=== PATIENT | male | born 1965 | race Caucasian/White ===

== ENCOUNTER 2018-12-17 09:42 | Emergency (ER) | payer BC ==
[2018-12-17] MEDS ORDERED: Ketorolac INJ* 30 MG/ML 1 ML VIAL IM ONE (10:08)
[2018-12-17] MEDS ORDERED: Cyclobenzaprine TAB* 10 MG PO ONE (10:09)
--- NOTE | 2018-12-17 10:24 | ED ---
Back Pain - HPI Summary HPI Summary: 53 year old male presents to the emergency department for evaluation of low back pain. Pt was lifting a heavy object on Saturday when he started feeling the pain. He states the pain worsens with flexion and twisting movements and is better if he stays still. He tried taking tylenol and an old vycodine prescription from 2005 which helps the pain some. Pt denies any urinary/bowel incontinence, saddle anesthesia, numbness, tingling, and loss of ROM. Pt is unable to bear weight and is using crutches to help him move around. denies any other injury. denies any urinary symptoms. no pain down the legs. pain is located in one spot in lower back. no history of back pain. has history of a fib. - History of Current Complaint Chief Complaint: EDBackInjuryPain Stated Complaint: BACK PAIN PER PT Time Seen by Provider: 12/17/18 09:51 Hx Obtained From: Patient Onset/Duration: Sudden Onset, Still Present Onset/Duration: Started Days Ago, Traumatic Pain Intensity: 8 Aggravating Symptom(s): Movement, Lifting, Bending - Allergies/Home Medications Allergies/Adverse Reactions: Allergies Allergy/AdvReac Type Severity Reaction Status Date / Time shellfish derived Allergy Hives Verified 12/17/18 09:57 Home Medications: Home Medications Magnesium Oxide [Magnesium] 400 mg PO DAILY 12/17/18 [History Confirmed 12/17/18 ] Sotalol TAB* [Betapace 80 MG TAB*] 80 mg PO BID 12/17/18 [History Confirmed ] PMH/Surg Hx/FS Hx/Imm Hx Previously Healthy: Yes Endocrine/Hematology History: Denies: Hx Anticoagulant Therapy, Hx Diabetes, Hx Thyroid Disease Cardiovascular History: Reports: Hx Hypertension, Other Cardiovascular Problems/ Disorders - NEW ONSET AFIB Denies: Hx Pacemaker/ICD Respiratory History: Reports: Hx Sleep Apnea - evaluation for 09/2013 Denies: Hx Asthma, Hx Chronic Obstructive Pulmonary Disease (COPD) History: Denies: Hx Renal Disease Sensory History: Reports: Hx Contacts or Glasses Opthamlomology History: Reports: Hx Contacts or Glasses Neurological History: Denies: Hx Dementia, Hx Seizures Psychiatric History: Reports: Hx Anxiety Denies: Hx Substance Abuse - Surgical History Surgery Procedure, Year, and Place: 1991- wisdom teeth - Immunization History Date of Tetanus Vaccine: PT STATES UNSURE Date of Influenza Vaccine: NONE Infectious Disease History: No Infectious Disease History: Denies: Hx Clostridium Difficile, Hx Hepatitis, Hx Human Immunodeficiency Virus (HIV), Hx Shingles, Hx Tuberculosis, Traveled Outside the [place] in Last 30 Days - Social History Alcohol Use: None Substance Use Type: Reports: None Smoking Status (MU): Never Smoked Tobacco Review of Systems Constitutional: Negative Negative: Fever, Chills, Fatigue Negative: Palpitations, Chest Pain Negative: Shortness Of Breath Negative: Abdominal Pain, Vomiting, Diarrhea, Nausea Genitourinary: Negative Positive: see HPI. Negative: frequency, incontinence Negative: Headache, Weakness, Paresthesia, Numbness, Syncope All Other Systems Reviewed And Are Negative: Yes Physical Exam Triage Information Reviewed: Yes Vital Signs On Initial Exam: Initial Vitals Temp Pulse Resp BP Pulse Ox 98.9 F 68 18 136/93 94 12/17/18 09:43 12/17/18 09:43 12/17/18 09:43 12/17/18 09:43 12/17/18 09:43 Vital Signs Reviewed: Yes Appearance: Positive: Well-Appearing, Well-Nourished Skin: Positive: Warm, Skin Color Reflects Adequate Perfusion, Dry Head/Face: Positive: Normal Head/Face Inspection Eyes: Positive: Normal, EOMI, Conjunctiva Clear ENT: Positive: Hearing grossly normal Neck: Positive: Supple, Nontender Respiratory/Lung Sounds: Positive: Clear to Auscultation, Breath Sounds Present Cardiovascular: Positive: Normal, RRR, Pulses are Symmetrical in both Upper and Lower Extremities Musculoskeletal: Positive: Normal, Strength/ROM Intact - pain with movement, Other - straight leg negative bilaterally Neurological: Positive: Normal, Sensory/Motor Intact - lower extremities, Alert , Oriented to Person Place, Time, Other - babinski negative Psychiatric: Positive: Normal, Affect/Mood Appropriate Diagnostics - Vital Signs Vital Signs Temp Pulse Resp BP Pulse Ox 12/17/18 09:43 98.9 F 68 18 136/93 94 - Laboratory Lab Statement: Any lab studies that have been ordered have been reviewed, and results considered in the medical decision making process. - CT back CT Interpretation Completed By: Radiologist Summary of CT Findings: IMPRESSION: 2. MILD LUMBAR SPONDYLOSIS DESCRIBED, IF THE PATIENT'S SYMPTOMS PERSIST RECOMMEND. FOLLOW-UP MR IMAGING. 2. MILD CHRONIC COMPRESSION FRACTURE OF THE SUPERIOR ENDPLATE OF THE L3 VERTEBRAL BODY. Re-Evaluation - Re-Evaluation First Eval Re-Evaluation Time: 11:34 Change: Improved Comment: able to ambulate around the room, pain improved Back Pain Course/Dx - Course Course Of Treatment: 53-year-old male presents with back pain for the past couple days. States pain is worse when he ambulates but is able to do so but has been using crutches so has a decreased with the pain. pain present only when he moves. No numbness or tingling. No saddle anasethesia or loss of bowel or bladder. Has been using old hydrocodone and Tylenol for the pain. On exam has pain with range of motion of the back. Neurovascularly intact. CT shows spondolysis. gave flexeril and toradol and feeling better. discussed will add steriod and flexeril. told follow up with primary. patient understand and agrees with plan. - Diagnoses Differential Diagnosis/HQI/PQRI: Positive: Fracture, Herniated Disc, Strain Provider Diagnoses: Back pain Discharge - Sign-Out/Discharge Documenting (check all that apply): Patient Departure Patient Received Moderate/Deep Sedation with Procedure: No - Discharge Plan Condition: Good Disposition: HOME Prescriptions: Cyclobenzaprine TAB* [Flexeril 10 MG TAB*] 10 mg PO TID PRN #21 tab PRN Reason: Pain methylPREDNISolone [Medrol Dosepak 4 MG*] 4 mg PO .SEE CAROL INSTRUCTION #1 packet Patient Education Materials: Back Pain (ED) Referrals: Danay Bailon DO [Primary Care Provider] - [facility] [place] Physical therapy,PT [Medical Doctor] - Additional Instructions: Follow directions on package for Medrol pack Take muscle relaxers three times a day Use ibuprofen or Tylenol for pain every 6 hours ice/heat area, move as much as possible Follow up with primary within 5 days follow up with PT Return to ED if develop any new or worsening symptoms - Billing Disposition and Condition Condition: GOOD Disposition: Home - Attestation Statements Provider Attestation: I was available for consult. This patient was seen by the KA[facility]. The patient was not presented to, seen by, or examined by me. -Maximino
[2018-12-17 11:53] VITALS: BP 114/70
== END 2018-12-17 11:52 | disposition home or self-care (01) ==
LOC: ED 09:42
DX: M54.5 Low back pain (principal); I10 Essential (primary) hypertension; I48.91 Unspecified atrial fibrillation
CPT/HCPCS: 72131; 96372; 99282; A9270-GY; J1885

== ENCOUNTER 2019-09-10 22:29 | Emergency (ER) | payer BC ==
--- NOTE | 2019-09-10 22:53 | ED ---
Palpitations / Dysrhythmia - HPI Summary HPI Summary: This pt is a 54 Y/O M presenting to [facility] with a CC of AFIB that started at 2100 this date. He states that he has a Hx of AFIB since 2013. He states that at the last instance of extended AFIB he had to be cardioverted. He states that he has had a total of 4 cardioversions. He denies any fever, headaches, SOB, diaphoresis, CP, and N/V. He states that he has no aggravating or alleviating factors. He has a PMHx of AFIB and HTN. - History of Current Complaint Chief Complaint: EDChestPainROMI Time Seen by Provider: 09/10/19 22:47 Hx Obtained From: Patient Onset/Duration: Sudden Onset, Lasting Hours - 2, Still Present Timing: Constant Severity Initially: Moderate Severity Currently: Moderate Character: Irregular Aggravating: Nothing Alleviating: Nothing Associated Signs & Symptoms: Negative - fever, headaches, SOB, diaphoresis, CP, and N/V - Allergy/Home Medications Allergies/Adverse Reactions: Allergies Allergy/AdvReac Type Severity Reaction Status Date / Time shellfish derived Allergy Hives Verified 12/17/18 09:57 PMH/Surg Hx/FS Hx/Imm Hx Previously Healthy: Yes Endocrine/Hematology History: Denies: Hx Anticoagulant Therapy, Hx Diabetes, Hx Thyroid Disease Cardiovascular History: Reports: Hx Hypertension, Other Cardiovascular Problems/ Disorders - NEW ONSET AFIB Denies: Hx Pacemaker/ICD Respiratory History: Reports: Hx Sleep Apnea - evaluation for 09/2013 Denies: Hx Asthma, Hx Chronic Obstructive Pulmonary Disease (COPD) History: Denies: Hx Renal Disease Sensory History: Reports: Hx Contacts or Glasses Opthamlomology History: Reports: Hx Contacts or Glasses Neurological History: Denies: Hx Dementia, Hx Seizures Psychiatric History: Reports: Hx Anxiety Denies: Hx Substance Abuse - Cancer History Hx Chemotherapy: No Hx Radiation Therapy: No - Surgical History Surgical History: Yes Surgery Procedure, Year, and Place: 1991- wisdom teeth - Immunization History Date of Tetanus Vaccine: PT STATES UNSURE Date of Influenza Vaccine: NONE Immunizations Up to Date: Yes Infectious Disease History: No Infectious Disease History: Denies: Hx Clostridium Difficile, Hx Hepatitis, Hx Human Immunodeficiency Virus (HIV), Hx Shingles, Hx Tuberculosis, Traveled Outside the [place] in Last 30 Days - Family History Known Family History: Positive: Hypertension - Social History Occupation: Employed Full-time Lives: With Family Alcohol Use: None Hx Substance Use: No Substance Use Type: Reports: None Hx Tobacco Use: No Smoking Status (MU): Never Smoked Tobacco Household Exposure: No Review of Systems Negative: Fever, Skin Diaphoresis Positive: Palpitations - states irregular . Negative: Chest Pain Negative: Shortness Of Breath Negative: Vomiting, Nausea Negative: Headache All Other Systems Reviewed And Are Negative: Yes Physical Exam - Summary Physical Exam Summary: Appearance: Well-appearing, Well-nourished, lying in bed comfortably Skin: Warm, dry, no obvious rash Eyes: sclera anicteric, no conjunctival pallor ENT: mucous membranes moist, pharynx appears normal Neck: Supple, nontender Respiratory: Clear to auscultation, no signs of respiratory distress Cardiovascular: irregularly irregular pulse and rhythm Abdomen: Soft, nontender, normal active bowel sounds present Musculoskeletal: Normal, Strength/ROM Intact Neurological: A&Ox3, awake and alert, mentation is normal, speech is fluent and appropriate Psychiatric: affect is normal, does not appear anxious or depressed Triage Information Reviewed: Yes Vital Signs On Initial Exam: Initial Vitals Temp Pulse Resp BP Pulse Ox 98.0 F 119 18 140/100 98 09/10/19 22:31 09/10/19 22:31 09/10/19 22:31 09/10/19 22:31 09/10/19 22:31 Vital Signs Reviewed: Yes Procedures - Sedation Patient Received Moderate/Deep Sedation with Procedure: Yes - 80 mgs propofol with good effect Are You The Provider Who Administered The Sedation: [place] of Provider Whom Sedated Patient: Randy Bergeron - Procedural Sedation/Analgesia Sedation Course: RT Present, Emergency Airway Equipment Available, Informed Consent Obtained, Time Out Completed, End-tidal Capnography Utilized Adverse Reactions Experienced by Patient: None Mallampati Classification: Class I ASA Classification: Class II: Mild Systemic Disease Pre-Procedural Heart: No Murmur Pre-Procedural Lungs: Clear Auscultation Comment/Plan of Care: clear for sedation/cardioversion Cleared for Moderate Sedation: Yes Pre-Procedural Diagnosis: atrial fibrillation Post-Procedural Diagnosis: atrial fibrillation Estimated Blood Loss: None Specimen(s): None Findings: None Implants/Tubes/Drains Placed: None - Additional Procedures Additional Procedures: cardioversion/defib - 200 joules synchronized, returned to sinus rhyhm. Diagnostics - Vital Signs Vital Signs Temp Pulse Resp BP Pulse Ox 09/10/19 22:31 98.0 F 119 18 140/100 98 - Laboratory Lab Statement: Any lab studies that have been ordered have been reviewed, and results considered in the medical decision making process. Course/Dx - Course Course Of Treatment: This pt is a 54 Y/O M presenting to [facility] with a CC of AFIB that started at 2100 this date. He states that he has a Hx of AFIB since 2013. He states that at the last instance of extended AFIB he had to be cardioverted. He states that he has had a total of 4 cardioversions. He denies any fever, headaches, SOB, diaphoresis, CP, and N/V. His PE found an irregulalrly irregular pulse and rhythm. He will be held until 0200 due to his intake of food and to see if he will spontaneously convert. He was cardioverted at 0135 with 80 mgs propofol to good effect and 200 joules synchronized which returned the pt to a NSR. He will be discharged home with a Dx of paroxysmal AFIB. 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 Sometimes they will want to get an ambulatory heart rhythm monitor done, to ensure that you are not having unrecognized periods of atrial fibrillation. - Billing Disposition and Condition Condition: IMPROVED Disposition: Home - Attestation Statements Document Initiated by Dayanna: Yes Documenting Scribe: Sekou Hunt Provider For Whom Dayanna is Documenting (Include Credential): Randy Bergeron MD Scribe Attestation: Sekou Fuentes, asiyaed for Randy Bergeron MD on 09/11/19 at 0322. Scribe Documentation Reviewed: Yes Provider Attestation: The documentation as recorded by the Sekou johnson accurately reflects the service I personally performed and the decisions made by me, Randy Bergeron MD Status of Scribe Document: Viewed
[2019-09-11] MEDS ORDERED: Propofol* 10 MG/ML 20 ML BTL IV PUSH ONE (01:16)
[2019-09-11 02:34] VITALS: BP 127/75
== END 2019-09-11 02:38 | disposition home or self-care (01) ==
LOC: ED 22:29
DX: I48.0 Paroxysmal atrial fibrillation (principal); I10 Essential (primary) hypertension
CPT/HCPCS: 92960; 93005; 96374; 99284; J2704

== ENCOUNTER 2021-09-28 09:06 | Inpatient (IN) ==
[~2021-09-28 09:06] MED LIST: Buffered Lidocaine 1% SYRIN 1 ml INTRADERM ONE; Lactated Ringers 1000 ml BAG 1,000 ML IV SCH
[2021-09-28] MEDS ORDERED: ceFAZolin 2 GM PREMIX 2 GM/50 ML BAG ONE (09:41)
[2021-09-28] MEDS ORDERED: Acetaminophen IV 1 GM/100ML 100 ML IV PRN (10:06)
[2021-09-28] MEDS ORDERED: DiMENhydriNATE IV 50 mg/ml 1 ml VIAL IV PUSH PRN (10:06)
[2021-09-28] MEDS ORDERED: Naloxone 0.4 mg VIAL 0.4 mg/ml 1 ml VIAL IV PRN (10:06)
[2021-09-28] MEDS ORDERED: HYDROmorphone 1 MG/1 ML SYRINGE IV PRN (10:06)
[2021-09-28] MEDS ORDERED: fentaNYL 100 mcg/2 ml 50 MCG/ML VIAL IV PRN (10:06)
[2021-09-28] MEDS ORDERED: Ondansetron 4 mg VIAL 2 MG/ML 2 ml VIAL IV PRN ×2 (10:06→12:34)
[2021-09-28] MEDS ORDERED: ROPIVACAINE 5 MG/ML 30 ML BTL (0.5%) ONE (10:45)
[2021-09-28] MEDS ORDERED: Midazolam 2 mg/2 ml VIAL 1 mg/ml 2 ml VIAL (2 mg) ONE (10:51)
[2021-09-28] MEDS ORDERED: Phenylephrine 40 mcg/mL 10mL (400mcg) SYRINGE ONE (12:12)
[2021-09-28] MEDS ORDERED: diPHENhydraMINE 25 mg TAB PO PRN (12:34)
[2021-09-28] MEDS ORDERED: diPHENhydraMINE IV 50 MG/ML 1 ml VIAL (BENADRYL) IV PRN (12:34)
[2021-09-28] MEDS ORDERED: Magnesium Hydroxide LIQ 30 ML UDC PO PRN (12:34)
[2021-09-28] MEDS ORDERED: Lactulose 30 ml UDC PO PRN (12:34)
[2021-09-28] MEDS ORDERED: Ondansetron ODT 4 mg TAB 4 MG TAB PO PRN (12:34)
[2021-09-28] MEDS ORDERED: Morphine 2 MG/ML SYRINGE IV PRN (12:34)
[2021-09-28] MEDS ORDERED: Morphine 2 MG/ML SYRINGE ONE (15:13)
[2021-09-28] MEDS: Lactated Ringers 1000 ml BAG 1,000 ML IV SCH (15:17)
[2021-09-28] MEDS: ceFAZolin 1 GM ADVAN 1 GM in NS 0.9% 50 ML 50 ML IVPB SCH (20:22)
[2021-09-28] MEDS ORDERED: Aspirin EC 81 mg TAB.EC (enteric coated) PO SCH (21:00)
[2021-09-28] MEDS: Magnesium Hydroxide LIQ 30 ML UDC PO SCH (21:09)
[2021-09-29] MEDS: Lactated Ringers 1000 ml BAG 1,000 ML IV SCH (00:54)
[2021-09-29] MEDS: ceFAZolin 1 GM ADVAN 1 GM in NS 0.9% 50 ML 50 ML IVPB SCH ×2 (04:50→13:00)
[2021-09-29 06:25] LABS: Hematocrit 37 % (42-52); Hemoglobin 12.7 g/dL (14.0-18.0); Mean Platelet Volume 8.2 fL (7.4-10.4); Platelet Count 173 10^3/uL (150-450)
[2021-09-29 06:42] LABS: Calcium 8.5 mg/dL (8.6-10.3); Potassium 3.7 mmol/L (3.5-5.0); eGFR CKD-EPI 103.4 (>60)
[2021-09-29] MEDS ORDERED: Vitamin THERAPEUTIC TAB PO SCH (09:00)
[2021-09-29] MEDS ORDERED: Potassium Chlor 20 meq TAB.ER PO SCH (09:00)
[2021-09-29 12:00] VITALS: BP 110/67
[2021-09-29] MEDS: Magnesium Hydroxide LIQ 30 ML UDC PO SCH (12:12)
== END 2021-09-29 15:00 | disposition home or self-care (01) | DRG 301 ==
LOC: AA 09:06 → SSU 15:04
PROVIDERS: ADMIT Orthopaedic Surgery Adult Reconstructive Orthopaedic Surgery; ATTEND Orthopaedic Surgery Adult Reconstructive Orthopaedic Surgery